=== PATIENT | male | born 1960 | race Caucasian/White ===

== ENCOUNTER 2020-06-08 09:44 | Emergency (ER) | payer OTHER ==
[~2020-06-08] VITALS: Ht 170.2 cm; Wt 80.0 kg
[2020-06-08] MEDS ORDERED: AMOXICILLIN500 MG PO (09:59)
[2020-06-08 10:29] LABS: HEMATOCRIT 46.2 % (39.0-50.0); HEMOGLOBIN 15.4 g/dl (14.0-18.0); IMMATURE GRANULOCYTES 0.4 % (0.0-5.0); MEAN CELL VOLUME 93.7 fL CALC (80.0-100.0); MEAN CORPUSCULAR HGB 31.2 pG CALC (26.0-32.0); MEAN CORPUSCULAR HGB CONC 33.3 g/dL CAL (32.0-36.0); NEUT# 14.79 thou/uL (1.82-7.42); RED BLOOD COUNT 4.93 mill/uL (4.70-6.10); RED CELL DISTRI WIDTH 13.1 % (11.5-15.5)
[2020-06-08 10:56] LABS: ALKALINE PHOSPHATASE 87 u/l (38-126); ANION GAP 16 (6-22 (CALC)); BILIRUBIN, TOTAL 1.3 mg/dL (0.0-1.4); BUN 15 mg/dL (9-20); BUN/CREATININE RATIO 16 (12-20 (CALC)); CARBON DIOXIDE 24 mmol/l (22-30); CHLORIDE 104 mmol/l (95-108); CREATININE 0.9 mg/dL (0.7-1.3); GFR > 60 ML/MIN (>=60 (CALC)); GFR FOR AFR.AMER. > 60 ML/MIN (>=60 (CALC)); POTASSIUM 4.4 mmol/l (3.5-5.1); SGOT/AST 21 u/l (17-59); SODIUM 140 mmol/l (137-146)
[2020-06-08] MEDS ORDERED: CLINDAMYCIN300 M1 PO (12:51)
[2020-06-08 12:56] VITALS: BP 128/69
== END 2020-06-08 12:58 | disposition home or self-care (01) | DRG 153 ==
LOC: ED 09:44
PROVIDERS: Family Medicine
DX: J36 Peritonsillar abscess (principal)
CPT/HCPCS: Q9967

== ENCOUNTER 2020-06-10 15:27 | Emergency (ER) | payer OTHER ==
[~2020-06-10] VITALS: Ht 170.2 cm; Wt 86.0 kg
[~2020-06-10 15:27] MED LIST: AMOXICILLIN500 MG PO; CLINDAMYCIN300 M1 PO
[2020-06-10 16:02] VITALS: BP 127/78
== END 2020-06-10 16:14 | disposition left against medical advice (07) | DRG 153 ==
LOC: ED 15:27
DX: J36 Peritonsillar abscess (principal); Z91.19 Patient's noncompliance with other medical treatment and regimen

== ENCOUNTER 2023-08-15 12:17 | Emergency (ER) | payer OTHER ==
[~2023-08-15] VITALS: Ht 170.2 cm; Wt 73.0 kg
[2023-08-15 12:33] VITALS: BP 165/113
[2023-08-15 12:45] VITALS: BP 171/96
[2023-08-15 12:58] LABS: BASO% 0.4 % (0-3); EOS% 1.8 % (0-8); HEMATOCRIT 44.3 % (39.0-50.0); HEMOGLOBIN 14.7 g/dl (14.0-18.0); IMMATURE GRANULOCYTES 0.1 % (0.0-5.0); LYMPH% 23.8 % (15-41); MEAN CELL VOLUME 93.9 fL CALC (80.0-100.0); MEAN CORPUSCULAR HGB 31.1 pG CALC (26.0-32.0); MEAN CORPUSCULAR HGB CONC 33.2 g/dL CAL (32.0-36.0); MONO% 8.6 % (2-13); NEUT# 4.38 thou/uL (1.82-7.42); NEUT% 65.3 % (42-76); RED BLOOD COUNT 4.72 mill/uL (4.70-6.10); RED CELL DISTRI WIDTH 13.9 % (11.5-15.5)
[2023-08-15 13:00] VITALS: BP 143/81
[2023-08-15 13:09] LABS: ALBUMIN 4.4 g/dL (3.2-5.0); ALKALINE PHOSPHATASE 61 u/l (38-126); ANION GAP 14 (6-22 (CALC)); BUN 11 mg/dL (8-23); BUN/CREATININE RATIO 13 (12-20 (CALC)); CARBON DIOXIDE 25 mmol/l (22-30); CHLORIDE 105 mmol/l (95-108); CREATININE 0.9 mg/dL (0.7-1.3); GFR FOR AFR.AMER. > 60 ML/MIN (>=60 (CALC)); GFR OTHER RACES > 60 ML/MIN (>=60 (CALC)); LIPASE 59 u/l (23-300); SGOT/AST 32 u/l (19-48); SODIUM 139 mmol/l (137-146); TOTAL PROTEIN 6.9 g/dL (6.3-8.2)
[2023-08-15 13:13] LABS: BILIRUBIN, TOTAL 0.7 mg/dL (0.2-1.3)
[2023-08-15 13:15] VITALS: BP 142/80
[2023-08-15 16:00] VITALS: BP 142/80
== END 2023-08-15 16:05 | disposition home or self-care (01) | DRG 206 ==
LOC: ED 12:17
PROVIDERS: Nurse Practitioner
DX: M94.0 Chondrocostal junction syndrome [Tietze] (principal)
CPT/HCPCS: Q9967